=== PATIENT | male | born 1970 | race Two or more races ===

== ENCOUNTER 2018-01-17 10:16 | Emergency (ER) | payer OTHER | END 2018-01-17 14:40 | disposition home or self-care (01) | LOC: ER 10:16 | DX: S09.90XA Unspecified injury of head, initial encounter (principal); M43.17 Spondylolisthesis, lumbosacral region; W01.198A Fall on same level from slipping, tripping and stumbling with subsequent striking against other object, initial encounter; Y93.89 Activity, other specified; Y99.8 Other external cause status; Y92.89 Other specified places as the place of occurrence of the external cause | CPT/HCPCS: 70450; 72100; 72125; 72131; 99284-25 ==